=== PATIENT | male | born 1995 | race Caucasian/White ===

== ENCOUNTER 2017-04-20 12:46 | Emergency (ER) | payer BC, MEDICAID, OTHER ==
[2017-04-20 12:56] VITALS: BP 162/99
[2017-04-20] MEDS ORDERED: LORazepam 2 MG/ML MDV IM ONE (13:00)
--- NOTE | 2017-04-20 13:05 | EDM.PDOCBH ---
ED HPI GENERAL MEDICAL PROBLEM - General Chief Complaint: Behavioral/Psych Stated Complaint: PANIC ATTACK Time Seen by Provider: 04/20/17 13:00 Source of Information: Reports: Patient History Limitations: Reports: No Limitations - History of Present Illness INITIAL COMMENTS - FREE TEXT/NARRATIVE: 21-year-old male who suffers from bipolar affective disorder presents to the ED struggling with anxiety and panic at this point time. He doesn't have a sense of doom but he has had before. He feels palpitations and chest pressures and very anxious inside. It looks like he has not slept well for a few days. Patient is currently on Zyprexa and Depakote for bipolar affective control. He is also on antidepressant. He is not currently on any benzodiazepines which he is used rarely effectively in the past when things get out of control like they did today. He states the precipitant was something that was said to him more or less that he was yelled at and this caused him to develop increased anxiety. Onset: Today, Sudden Onset Date: 04/20/17 Onset Time: 12:00 Duration: Minutes: Location: Reports: Generalized - Related Data Allergies Allergy/AdvReac Type Severity Reaction Status Date / Time Penicillins Allergy Other Verified 04/20/17 12:52 haldol Allergy Swelling Uncoded 04/20/17 12:52 Home Meds: Home Meds ALPRAZolam [Xanax] 1 mg PO BID 05/11/16 [History] Gabapentin [Neurontin] 300 mg PO TID 05/11/16 [History] OLANZapine [ZyPREXA] 20 mg PO BEDTIME 05/11/16 [History] diphenhydrAMINE HCl [Benadryl] 25 mg PO BEDTIME 05/11/16 [History] LORazepam [Ativan] 1 mg PO ASDIRECTED PRN #10 tablet 04/20/17 [Rx] Past Medical History Psychiatric History: Reports: Anxiety, Bipolar, Depression Social & Family History - Family History Family Medical History: Noncontributory - Tobacco Use Smoking Status *Q: Current Every Day Smoker Years of Tobacco use: 6 Packs/Tins Daily: 1 - Recreational Drug Use Recreational Drug Use: No Drug Use in Last 12 Months: Yes Recreational Drug Type: Reports: Marijuana/Hashish Recreational Drug Use Frequency: Weekly - Living Situation & Occupation Living situation: Reports: Single Occupation: Employed ED ROS GENERAL - Review of Systems Review Of Systems: See Below Constitutional: Reports: Malaise, Weakness, Fatigue, Decreased Appetite HEENT: Reports: No Symptoms Respiratory: Reports: No Symptoms Cardiovascular: Reports: No Symptoms Endocrine: Reports: Fatigue GI/Abdominal: Reports: Decreased Appetite : Reports: No Symptoms Musculoskeletal: Reports: No Symptoms Skin: Reports: No Symptoms Neurological: Reports: Confusion, Dizziness, Tremors. Denies: Trouble Speaking , Difficulty Walking, Change in Speech, Gait Disturbance Psychiatric: Reports: Anxiety, Confusion, Mood Lability. Denies: Suicidal Ideation Hematologic/Lymphatic: Reports: No Symptoms Immunologic: Reports: No Symptoms ED EXAM, BEHAVIORAL HEALTH - Physical Exam Exam: See Below Exam Limited By: No Limitations General Appearance: Alert, WD/WN, Moderate Distress (Appears to been crying.) Eye Exam: Bilateral Eye: Conjunctival Injection (From crying.) Cardiovascular: Normal Peripheral Pulses, No Edema, No Gallop, No Murmur, Tachycardia (Resting heart rate is 1 25/m.), Other (He is also hypertensive at 162/99) GI/Abdominal: Normal Bowel Sounds, Soft, Non-Tender, No Organomegaly Extremities: Normal Inspection, Normal Range of Motion, Non-Tender, No Pedal Edema, Normal Capillary Refill Psychiatric: Restless, Tearful, Other (Anxious.). No: Uncooperative, Withdrawn , Flight of Ideas, Homicidal Thoughts, Phobic, Episcopal Delusions, Suicidal Plan, Suicidal Thoughts, Tangential Thoughts, Auditory Hallucinations, Grandiose Thoughts, Pressured Speech Skin Exam: Warm, Dry, Intact, Normal color, No rash COURSE, BEHAVIORAL HEALTH COMP - Course Vital Signs: Last Vital Signs Temp 36.4 C 04/20/17 12:53 Pulse 124 H 04/20/17 12:53 Resp 20 04/20/17 12:53 BP 162/99 H 04/20/17 12:53 Pulse Ox 94 L 04/20/17 12:53 Orders, Labs, Meds: Medications Discontinued Medications Generic Name Dose Route Start Last Admin Trade Name Freq PRN Reason Stop Dose Admin Lorazepam 2 mg 04/20/17 13:00 04/20/17 13:09 Ativan IM 04/20/17 13:01 2 mg ONETIME ONE Administration Re-Assessment/Re-Exam: 21-year-old male who has has a diagnosis of bipolar affective disorder presents to the ED with acute anxiety attack. He doesn't have a strong sense of doom but he is aware of palpitations shortness of breath and jitteriness throughout his body. He's had these many times in the past. Is currently on Zyprexa 20 mg once daily at bedtime and Depakote twice daily he's not sure of the dosages. He is also on antidepressant daily. Currently not on any benzodiazepines. Plan Ativan 2 mg IM to be given. I will give him a prescription for 10 Ativan 1 mg tablets to be used on a when necessary basis for anxiety relief. Departure - Departure Time of Disposition: 13:15 Disposition: Home, Self-Care 01 Condition: Fair Clinical Impression: Anxiety - Discharge Information Prescriptions: LORazepam [Ativan] 1 mg PO ASDIRECTED PRN #10 tablet PRN Reason: Anxiety attack Instructions: Panic Attacks Referrals: PCP,Not In Area [Primary Care Provider] - Forms: ED Department Discharge, ED Return to Work/School Form Additional Instructions: Evaluation the emergent today in regards to an acute anxiety attack with palpitations shortness of breath and generalized restlessness and agitation. No strong sense of doom today. By history you have suffered from bipolar affective disorder and/or medications to treat this although you feel that current medications are not all that helpful. I agree with your diagnosis today of panic attack and you were treated with Ativan 2 mg IM. I also wrote a prescription for 1 mg strength orally to be taken on a as needed basis for panic attack or anxiety attack I would suggest following up with a psychiatrist such as Dr. Winston from [place]. These interviews are often conducted over a TV or computer [employer] program. It's a few time in terms of driving all way to [place] to see a psychiatrist. I would like him to have a look at your medications and then follow you along to make sure that you are responding to medications and he can make appropriate adjustments. Please call [phone] to arrange an appointment.
== END 2017-04-20 13:26 | disposition home or self-care (01) ==
LOC: JD.ED 12:46
DX: F41.9 Anxiety disorder, unspecified (principal); F17.210 Nicotine dependence, cigarettes, uncomplicated; Z88.0 Allergy status to penicillin; Z88.5 Allergy status to narcotic agent; Z79.899 Other long term (current) drug therapy
CPT/HCPCS: 96372; 99283; J2060